=== PATIENT | female | born 1995 | race Caucasian/White ===

== ENCOUNTER 2021-02-12 16:26 | Emergency (ER) | payer OTHER ==
[~2021-02-12] VITALS: Ht 165.1 cm; Wt 106.6 kg
[2021-02-12 16:29] VITALS: BP 142/84
--- NOTE | 2021-02-12 18:20 | NUR ---
PT AMBULATED TO BED 6
--- NOTE | 2021-02-12 18:32 | NUR ---
25 Y FEMALE WITH C/O OF R INDEX FINGER PAIN. PT STATED SHE WAS REACHING INTO A COOLER TO GRAB A SODA WHEN THE SODA FELL AND HER NAIL RIPPED FORWARD. NAIL IS STILL ATTATCHED. PT STATES SHE FEELS SOME NUMBESS, BUT NO SIGNS OF TRAUMA NOTED PMH: DENIES NKA
--- NOTE | 2021-02-12 18:38 | NUR ---
PT PLACED IN RIGHT POINTER FINGER SPLINT AND WRAPED WITH 1" GUAZE ROLL. CMS WNL BEFORE AND AFTER.
[2021-02-12 18:52] VITALS: BP 125/59
--- NOTE | 2021-02-12 18:52 | NUR ---
Patient discharged with v/s stable. Written and verbal after care instructions given and explained. Patient verbalized understanding. Ambulatory with steady gait. All questions addressed prior to discharge. Advised to follow up with PMD.
== END 2021-02-12 18:52 | disposition home or self-care (01) ==
LOC: MED 16:26
DX: S61.300A Unspecified open wound of right index finger with damage to nail, initial encounter (principal); X58.XXXA Exposure to other specified factors, initial encounter; Y93.89 Activity, other specified; Y92.89 Other specified places as the place of occurrence of the external cause; Y99.8 Other external cause status
CPT/HCPCS: 99283